=== PATIENT | female | born 2000 | race American Indian/Alaskan Native ===

== ENCOUNTER 2025-02-18 05:41 | Inpatient (IN) | payer OTHER, SELFPAY ==
[2025-02-18] VITALS (12 sets, daily range): BP systolic 104–141; BP diastolic 58–84; PULSE 96–130; RESP 12–27; TEMP 36.7–37.1; O2SAT 89–98; BMI 29.3; BMI 31.0
--- NOTE | 2025-02-18 | ECG_ITS ---
Test Reason : TACHY Blood Pressure : */* mmHG Vent. Rate : 119 BPM Atrial Rate : 119 BPM P-R Int : 136 ms QRS Dur : 86 ms QT Int : 314 ms P-R-T Axes : 66 78 20 degrees QTcB Int : 441 ms Sinus tachycardia Otherwise normal ECG No previous ECGs available Referred By: Generic ED Physician Electronically Signed By: Matthew Lujan
--- NOTE | ~2025-02-18 | CT_ITS ---
EXAMINATION: CT ABDOMEN AND PELVIS WITHOUT AND WITH CONTRAST CLINICAL INFORMATION: rectal bleeding, abd pain, elevated LFTs COMPARISON: None available. TECHNIQUE: Multidetector volumetric imaging was performed of the abdomen and pelvis before and after the IV administration of 85 cc of Omnipaque 350 intravenous contrast. Sagittal and coronal reformatted images were obtained on the technologist's workstation. This CT examination was performed using dose optimization techniques as appropriate, variously including the following: *Automated exposure control *Adjustment of mA and/or kV according to patient size (this includes techniques or standardized protocols for targeted exams where dose is matched to indication/reason for exam; i.e. extremities or head) *Use of iterative reconstruction technique FINDINGS: Respiratory motion degrades some of the images. LUNG BASES: No focal consolidation. No pleural effusion. LIVER: Hepatomegaly measuring 17.1 cm. Diffuse decreased attenuation of the liver parenchyma is compatible with hepatic steatosis. No focal lesions. GALLBLADDER AND BILIARY TREE: The gallbladder is unremarkable with no evidence of radiopaque gallstones, gallbladder wall thickening, or obvious pericholecystic inflammatory changes. No biliary ductal dilatation. PANCREAS: Unremarkable SPLEEN: Unremarkable ADRENAL GLANDS: Unremarkable KIDNEYS AND URETERS: No renal stones, solid appearing masses or hydronephrosis on either side. BLADDER: Unremarkable GASTROINTESTINAL TRACT: The small and large bowel are unremarkable. No evidence of intraluminal hyperdense content to suggest bleeding. The appendix is unremarkable. ABDOMINAL WALL: Small fat-containing umbilical hernia. PERITONEUM/RETROPERITONEUM: No free fluid or free air. LYMPH NODES: No gross lymphadenopathy. VASCULAR: Abdominal aorta is normal in caliber. PELVIC VISCERA: Unremarkable appearance of the uterus and bilateral ovaries. OSSEOUS STRUCTURES: No acute findings. CT/CT gi bleed abd pel wo/w IVcon IMPRESSION: 1. No acute findings. 2. No evidence of intraluminal bleeding within the bowel loops. 3. Hepatomegaly with findings of hepatic steatosis. Electronically signed by: Florin Altman MD 02/18/2025 09:34 AM EDT
[2025-02-18 06:32] LABS: MANUAL DIFF FLAG NO
[2025-02-18 06:37] LABS: Hematocrit 40.3 % (37.0-47.0); Hemoglobin 14.4 g/dl (12.0-16.0); Imm Gran Abs Auto 0.02 X10*3/uL (0.00-0.03); Imm Gran Pct Auto 0.3 % (0.0-0.4); Lymphocytes Absolute Auto 2.9 X10*3/uL (1.2-4.9); Mean Corpuscular HGB Conc 35.7 g/dl (31.0-35.0); Mean Corpuscular Hemoglobin 36.5 pg (27.0-33.0); Mean Corpuscular Volume 102.3 fL (80.0-98.0); NRBC Abs Auto 0.000 X10*3/uL (0.0-0.012); NRBC Pct Auto 0.0 /100WBC (0.0-0.2); Platelet Count 202 X10*3/uL (160-400); Red Blood Count 3.94 X10*6/uL (4.20-5.50); White Blood Count 6.9 X10*3/uL (4.8-10.8)
[2025-02-18 06:44] LABS: COVID-19 Test Negative (Negative); IDNOW Serial# 55D5AD1C; IDNOW Serial# 58CA691E; Influenza B2 Negative (Negative)
[2025-02-18 06:51] LABS: Alanine Aminotransferase 385 U/L (0-31); Albumin Level 4.7 g/dL (3.5-5.0); Alkaline Phosphatase 92 U/L (39-117); Anion Gap 17 (12-20); Aspartate Amino Transferase 553 U/L (5-31); Blood Urea Nitrogen 12 mg/dL (9-16); Calcium 9.4 mg/dL (8.4-10.2); Carbon Dioxide 22 mmol/L (22-29); Chloride 107 mmol/L (96-108); Creatinine Clr Calc Pharmacy 129.7; Estimated Glomerular Filt Rate > 60; Lipase 34 U/L (8-78); Magnesium 1.6 mg/dL (1.6-2.6); Potassium 3.5 mmol/L (3.3-5.1); Sodium 142 mmol/L (135-145); Total Protein 7.1 g/dL (6.5-8.0)
--- NOTE | 2025-02-18 07:02 | ED_ITS ---
HPI - Nausea/Vomiting/Diarrhea General Chief complaint: Nausea/Vomiting/Diarrhea Stated complaint: Stomach pain,n/v/d Time Seen by Provider: 02/18/25 07:01 Source: patient and RN notes reviewed Mode of arrival: ambulatory Limitations: no limitations History of Present Illness ED Provider: Clarisa Jean PA-C HPI Narrative: This is a 24-year-old female, with a past medical history of alcohol use disorder, who presents emergency department complaints of nausea, vomiting, and diarrhea for the last 8 weeks. Patient reports that she has had a burning sensation in her abdomen as well. She endorses that she does drink every day. She states that if she does not drink she goes into alcohol withdrawal, stating that she gets shaky, denies any history of seizure like activity. She states that she typically drinks a gal of vodka every 3 days. She has never sought out detox or help. She states that her last drink was just prior to assessment. She reports that the abdominal pain is less severe as the alcohol that she drinks does help with her abdominal pain. Denies any fevers or chills. No chest pain or shortness of breath. Denies any SI or HI. Patient does endorse bright red blood per rectum. No other complaints or concerns at this time. MD elicited complaint: nausea, vomiting, diarrhea and abdominal pain Pertinent past history: alcohol abuse Onset (ago): week(s) Description of vomiting: watery Description of diarrhea: blood Associated nausea: Yes Associated abdominal pain: Yes Location of pain: diffuse Pain consistency: intermittent Severity: moderate Quality: cramping and other (Burning) Exacerbating factors: none Relieving factors: none Associated symptoms: denies other symptoms Related Data Allergies Allergy/AdvReac Type Severity Reaction Status Date / Time amoxicillin Allergy Rash Verified 02/18/25 05:51 cefazolin Allergy Rash Verified 02/18/25 05:51 Penicillins Allergy Rash Verified 02/18/25 05:51 Review of Systems 2 Review of Systems: Yes all other systems are reviewed and are negative Constitutional: Constitutional: Reports as per HPI Gastrointestinal: Gastrointestinal: Reports nausea PMFSH Social History Social History Smoked in Last 30 Days: Yes Use of substances other than those prescribed or required for medical reasons: Yes Substance Use Type: Marijuana Advance Directives: No Advance Directives Information Provided: Yes Patient : No Physical Exam 2 Vital Signs: Vital Signs: Last Vital Signs Temp 98.2 F 02/18/25 05:50 Pulse 113 H 02/18/25 07:52 Resp 12 02/18/25 07:52 BP 123/75 02/18/25 07:52 Pulse Ox 95 02/18/25 07:52 O2 Del Method Room Air 02/18/25 07:52 BMI result Body Mass Index 29.3 Const: Other: Patient tearful, alcohol halitosis noted General: cooperative, comfortable and no acute distress O rientation/consciousness: patient oriented x3 Limitations: no limitations HEENT: Head: Yes normal to inspection, Yes normocephalic and Yes atraumatic Ears: hearing grossly normal bilaterally General nose exam: Normal external nose present Face and sinus: Yes normal facial exam Mouth: Normal oral and palatal mucosa present, oropharynx normal and moist mucous membranes Throat: Yes posterior oropharynx normal Eyes: General: appearance normal, both eyes and all related structures E yelids: Yes eyelids normal Conjunctivae: conjunctivae normal Sclerae: s clerae normal Pupils: Equal, round and reactive pupils present EOM: EOMs intact bilaterally Neck: Neck: Yes normal visual inspection, Yes full ROM and Yes no lymphadenopathy Lymphatic: no lymphadenopathy noted Chest: Chest palpation & inspection: normal inspection of the chest Resp: Effort & Inspection: normal respiratory effort and able to speak in complete sentences Auscultation: clear to auscultation bilaterally, no crackles, no rales, no rhonchi and no wheezes Cardio: Rate: regular rate Rhythm: regular rhythm Heart sounds: S1 normal heart sound present and S2 normal heart sound present GI: Inspection: Yes normal to inspection Skin: General skin exam: no rashes or lesions noted Trauma: no lacerations or abrasions Wounds: no wounds Neuro: General: patient oriented x3 and moves all extremities Cranial nerves: Yes Equal, round and reactive pupils present Extrem: General: Yes normal to inspection Right upper extremity: normal to inspection Left upper extremity: normal to inspection Right lower extremity: normal to inspection Left lower extremity: normal to inspection Medications Administered Discontinued Medications Generic Name Dose Route Start Last Admin Trade Name Freq PRN Reason Stop Dose Admin Diazepam 2.5 mg 02/18/25 07:21 02/18/25 07:48 Diazepam 10 Mg/2 Ml Cartridge IVPUSH 02/18/25 07:22 2.5 mg STAT ONE Administration Lactated Ringer's 1,000 mls @ 999 mls/hr 02/18/25 07:21 02/18/25 07:50 Lr IV 02/18/25 08:21 999 mls/hr .Q1H1M ONE Administration Iohexol 100 ml 02/18/25 08:41 02/18/25 08:41 Iohexol 350 Mg/Ml 100 Ml Infus..Btl IV 02/18/25 08:42 85 ml ONCE ONE Administration Phenobarbital Sodium 191 mg 02/18/25 08:00 02/18/25 08:12 Phenobarbital Sodium 130 Mg/Ml Im Once IM 02/18/25 08:01 191 mg ONCE ONE Administration Protocol Medical Decision Making Medical Decision Making MDM Narrative: This is a 24-year-old female who presents emergency department with concerns of nausea, vomiting, diarrhea and abdominal pain for the last 8 weeks. She does endorse bloody stool. She states that she does drink daily. She states that she typically drinks 1 gal of vodka every 3 days. Abdomen is soft, nontender. On my initial assessment, patient tearful, tachycardic. She last drank just prior to my assessment. Patient is shaky. Patient has not sought out detox or any help for her alcohol use disorder. Her family is unaware of these issues. Labs were obtained prior to my evaluation, she has no leukocytosis, H&H stable. Chemistry revealing significantly elevated liver transaminases nidus at AST ALT 553/385, normal bilirubin. This is consistent with alcohol induced hepatitis. She denies any other drug use other than marijuana. Negative for COVID and flu. EKG was obtained revealing sinus tachycardia. Given concern for alcohol withdrawal, will start on IV fluids, we will also medicate with Valium 2.5 mg IV push, and start on phenobarb protocol. We will also obtain CT abdomen and pelvis with and without contrast given bright red blood per rectum, and burning sensation, as well as history of alcohol use. 8:45 AM 02/18/2025 (Clarisa Jean PA-C): Patient returns back from CT scan, awaiting for report. Ethanol level 332. We will continue to closely monitor. Reassess, she is feeling better after receiving medications. Patient is still mildly tachycardic in the 1 teens however improved since her arrival. We will continue to closely monitor pending overall workup today. 9:42 AM 02/18/2025 (Clarisa Jean PA-C): Cat scan returns revealing no acute findings, no evidence of intraluminal bleeding within the bowel loops, hepatomegaly with findings of hepatic steatosis. Given acute hepatitis, and alcohol withdrawal, patient requiring hospital admission for further management. 9:55 AM 02/18/2025 (Clarisa Jean PA-C): Discussed case with hospitalist, transfer of care initiated. Patient agreeable for admission. Patient does endorse some nausea, ordered Zofran 4 mg IV. Differential Diagnosis Differential Diagnoses: The differential diagnosis associated with the presentation includes Alcohol withdrawal, alcohol use disorder, acute hepatitis, GI bleed Admission/Observation Consideration of admission/observation: Escalation of care including admission/observation considered Patient requiring admission secondary to alcohol use disorder, alcohol withdrawal, and acute hepatitis Lab Data [facility] Lab Attestation statement: I reviewed the patient's lab results. See MDM and course 02/18/25 06:26 02/18/25 06:26 Labs: Lab Results 02/18/25 02/18/25 02/18/25 Range/Units 06:22 06:26 08:15 WBC 6.9 (4.8-10.8) X10*3/uL RBC 3.94 L (4.20-5.50) X10*6/uL Hgb 14.4 (12.0-16.0) g/dl Hct 40.3 (37.0-47.0) % MCV 102.3 H (80.0-98.0) fL MCH 36.5 H (27.0-33.0) pg MCHC 35.7 H (31.0-35.0) g/dl RDW 12.8 (11.0-16.0) % Plt Count 202 (160-400) X10*3/uL MPV 9.8 (9.4-12.3) fL Immature Gran % (Auto) 0.3 (0.0-0.4) % Neut % (Auto) 42.7 L (45-73) % Lymph % (Auto) 41.8 H (20-40) % [place] % (Auto) 12.3 H (2-11) % Eos % (Auto) 2.2 (0-4) % Baso % (Auto) 0.7 (0-2) % Lymph # (Auto) 2.9 (1.2-4.9) X10*3/uL [place] # (Auto) 0.8 (0.1-1.2) X10*3/uL Eos # (Auto) 0.2 (0.0-0.4) X10*3/uL Baso # (Auto) 0.1 (0.0-0.2) X10*3/uL Abs Immat Gran (auto) 0.02 (0.00-0.03) X10*3/uL Absolute Neuts (auto) 2.9 (2.0-8.3) x10*3/uL Absolute Nucleated RBC 0.000 (0.0-0.012) X10*3/uL Nucleated RBC % (auto) 0.0 (0.0-0.2) /100WBC Sodium 142 (135-145) mmol/L Potassium 3.5 (3.3-5.1) mmol/L Chloride 107 (96-108) mmol/L Carbon Dioxide 22 (22-29) mmol/L Anion Gap 17 (12-20) BUN 12 (9-16) mg/dL Creatinine 0.60 (0.5-1.4) mg/dL Estim Creat Clear Calc 129.7 Estimated GFR > 60 Random Glucose 89 (60-115) mg/dL Calcium 9.4 (8.4-10.2) mg/dL Magnesium 1.6 (1.6-2.6) mg/dL Total Bilirubin 0.6 (0.0-1.0) mg/dL Direct Bilirubin 0.3 (0.0-0.5) mg/dL AST 553 H (5-31) U/L ALT 385 H (0-31) U/L Alkaline Phosphatase 92 (39-117) U/L Total Protein 7.1 (6.5-8.0) g/dL Albumin 4.7 (3.5-5.0) g/dL Lipase 34 (8-78) U/L Beta HCG, Quant < 2 mIU/mL Urine Color Yellow Urine Appearance Clear Urine pH 6.0 (5.0-9.0) Ur Specific [place] 1.010 (1.005-1.025) Urine Protein 30 (1+) H (Neg-Trace) mg/dL Urine Glucose (UA) Negative (Negative) mg/dL Urine Ketones Negative (Negative) mg/dL Urine Blood Negative (Negative) Urine Nitrite Negative (Negative) Ur Leukocyte Esterase Negative (Negative) Urine RBC 0-2 (0-2) /HPF Urine WBC 0-5 (0-5) /HPF Ur Squamous Epith Cells 0-2 (0-2) /HPF Urine Bacteria None Seen (None Seen) Hyaline Casts 0-2 (0-2) /LPF Urine Test NEGATIVE (NEGATIVE) Urine Opiates Screen Not Detected (Not Detect) Ur Buprenorphine Scrn Not Detected (Not Detect) ng/mL Ur Oxycodone Screen Not Detected (Not Detect) ng/mL Urine Methadone Screen Not Detected (Not Detect) ng/mL Urine Fentanyl Screen Not Detected (Not Detect) Ur Barbiturates Screen Not Detected (Not Detect) Ur Phencyclidine Scrn Not Detected (Not Detect) Ur Amphetamines Screen Not Detected (Not Detect) U Benzodiazepines Scrn Not Detected (Not Detect) Urine Cocaine Screen Not Detected (Not Detect) U Marijuana (THC) Screen POSITIVE H (Not Detect) Ethyl Alcohol 332 H* mg/dL COVID-19 (FLOYD) Negative (Negative) COVID-19 Clin Com See Note Influenza Type A (SHALONDA) Negative (Negative) Influenza Type B (SHALONDA) Negative (Negative) Influenza A & B Note See Note Independent Interpretation I performed an independent interpretation of an: EKG Interpretation: EKG sinus tachycardia at a ventricular rate of 119 beats per minute, GA interval 136, no STEMI Radiology Impression Discussion of test interpretation with radiology: I have reviewed the radiologist's reading. Radiologist Impression: FINDINGS: Respiratory motion degrades some of the images. LUNG BASES: No focal consolidation. No pleural effusion. LIVER: Hepatomegaly measuring 17.1 cm. Diffuse decreased attenuation of the liver parenchyma is compatible with hepatic steatosis. No focal lesions. GALLBLADDER AND BILIARY TREE: The gallbladder is unremarkable with no evidence of radiopaque gallstones, gallbladder wall thickening, or obvious pericholecystic inflammatory changes. No biliary ductal dilatation. PANCREAS: Unremarkable SPLEEN: Unremarkable ADRENAL GLANDS: Unremarkable KIDNEYS AND URETERS: No renal stones, solid appearing masses or hydronephrosis on either side. BLADDER: Unremarkable GASTROINTESTINAL TRACT: The small and large bowel are unremarkable. No evidence of intraluminal hyperdense content to suggest bleeding. The appendix is unremarkable. ABDOMINAL WALL: Small fat-containing umbilical hernia. PERITONEUM/RETROPERITONEUM: No free fluid or free air. LYMPH NODES: No gross lymphadenopathy. VASCULAR: Abdominal aorta is normal in caliber. PELVIC VISCERA: Unremarkable appearance of the uterus and bilateral ovaries. OSSEOUS STRUCTURES: No acute findings. CT/CT gi bleed abd pel wo/w IVcon IMPRESSION: 1. No acute findings. 2. No evidence of intraluminal bleeding within the bowel loops. 3. Hepatomegaly with findings of hepatic steatosis. Electronically signed by: Florin Altman MD 02/18/2025 09:34 AM EDT Dictated By: Florin Altman MD Critical Care Time Critical Care Time Critical Care Time: Yes Total Critical Care Time: 45 Attestation: I have personally provided critical care time exclusive of time spent on separately billable procedures. Time includes review of lab data, radiology results, discussion with consultants, and monitoring for potential decompensation. Intervention performed as documented. Discharge Plan Discharge Clinical Impression: Alcohol withdrawal, Hepatitis, acute Patient Disposition: Admitted As Inpatient Print Language: [place]
--- NOTE | 2025-02-18 07:38 | PC.NURSE ---
PT requesting detox, reports drinking 1 handle every 3 days. Sober friend at bedside who encouraged pt to come in. PT changed over, belongings placed in [place]. Alcohol in purse discarded by security.
[2025-02-18] MEDS: diazePAM 10 MG/2 ML CARTRIDGE 2.5 MG IVPUSH (07:48)
[2025-02-18] MEDS: Lactated Ringers 1,000 ML 999 ML IV (07:50)
--- NOTE | 2025-02-18 07:55 | PC.NURSE ---
Assumed care of patient. Pt is A+Ox4, anxious, cooperative. Pt here for alcohol detox, very anxious, was tachycardic. Smell of etoh noted on patient's breath, security previously checked patient per night nurse. Pt denies any pain at this time. Pt medicated and IV fluids started. Pt ambulated to bathroom prior to medications.
[2025-02-18] MEDS: PHENobarbitaL sodium 130 MG/ML IM ONCE 191 MG IM (08:12)
[2025-02-18 08:26] LABS: UPreg QC Valid YES
[2025-02-18 08:28] LABS: Appearance Urine Clear; Glucose Urine UA Negative (Negative); PH 6.0 (5.0-9.0); Specific Gravity - Urine 1.010 (1.005-1.025); UMIC TRIGGER UACC YES
[2025-02-18 08:34] LABS: Cannabinoid Screen Urine POSITIVE (Not Detect)
[2025-02-18] MEDS: iohexoL 350 MG/ML 100 ML INFUS..BTL IV (08:41)
--- NOTE | 2025-02-18 09:49 | P.HPHOSP_ITS ---
History of Present Illness Date of Service: 02/18/25 Attending physician on admission: Felicia Patricia Chief Complaint: Abd pain Pt is a 24-year-old female with a PMH significant for?alcohol use disorder who presents to the ED with?chronic left-sided abdominal pain and N/V/D in the setting of alcohol use disorder. Pt is requesting detox. Abd pain is sharp and stabbing in nature and primarily left-sided. Has been ongoing for months. Pt reports drinking be handle of rum every 2-3 days for many years. Attempted to detox on her own 2 years ago at home and apparently went into withdrawal. States has morning essential tremors which causes her to drink as soon as she wakes up. Has been drinking since she was 15 years old denies any hospitalizations for alcohol withdrawal. Has not sought detox in formal setting prior to this. Is tearful and would like help with her drinking. Reports increased anxiety and N/V. No auditory or visual hallucinations. No tactile disturbances. No SOB or difficulty breathing. Denies chest pain or pressure. Smokes marijuana, but denies illicit drug use. In the ED pt's vitals were significant for tachycardia of 130 and tachypnea 27. Labs were significant for MCV 102.3, AST 553 and ALT 385. T bili WNL. Lipase WNL. No leukocytosis. Stable H&H. No significant electrolyte abnormalities. Renal function WNL. Magnesium 1.6. CT?of abdomen/pelvis negative for acute findings though showed hepatomegaly. EKG demonstrated sinus tachycardia of 119 with QTC WNL and no evidence of significant ST elevations or depressions. Pt was treated in the ED with diazepam, IVF, and started on phenobarb protocal. Pt is admitted to the hospital for treatment and further evaluation of acute alcoholic hepatitis and request for alcohol detox. Review of Systems 2 Review of Systems: Negative except for that which is stated in the HPI. [facility] Social History Smoked in Last 30 Days: Yes Use of substances other than those prescribed or required for medical reasons: Yes Substance Use Type: Marijuana Advance Directives: No Advance Directives Information Provided: Yes Patient : No Meds Allergies Allergy/AdvReac Type Severity Reaction Status Date / Time amoxicillin Allergy Rash Verified 02/18/25 05:51 cefazolin Allergy Rash Verified 02/18/25 05:51 Penicillins Allergy Rash Verified 02/18/25 05:51 Active Medications: Current Medications Pharmacy Consult (Consult Rx Etoh Phenob Im/Po) 1 each MISCELLANE ONCE PRN; Protocol PRN Reason: Consult order Phenobarbital (Phenobarbital 30 Mg Tablet) 30 mg PO BID PHILIP; Protocol Stop: 02/20/25 09:01 Phenobarbital (Phenobarbital 15 Mg Tablet) 15 mg PO BID PHILIP; Protocol Stop: 02/22/25 09:01 Phenobarbital (Phenobarbital 15 Mg Tablet) 15 mg PO DAILY PHILIP; Protocol Stop: 02/24/25 09:01 Phenobarbital Sodium (Phenobarbital Sodium 130 Mg/Ml Vial Im Q3hx2) 143 mg IM Q3H PHILIP; Protocol Stop: 02/18/25 14:01 Home Medications ?Medication ?Instructions ?Recorded ?Confirmed ?Last Taken ?Type naproxen sodium 500 mg 500 mg PO DAILY PRN Migraine 02/18/25 02/18/25 Unknown History tablet,extended release 24 hr Headache mphase Physical Exam 2 Vital Signs and Narrative: Vital Signs: Last Vital Signs Temp 98.2 F 02/18/25 05:50 Pulse 113 H 02/18/25 07:52 Resp 12 02/18/25 07:52 BP 123/75 02/18/25 07:52 Pulse Ox 95 02/18/25 07:52 O2 Del Method Room Air 02/18/25 07:52 BMI result Body Mass Index 29.3 General: AOx3, tearful. In no acute distress Resp: CTA bilaterally CVS: S1, S2, RRR GI: Soft, no distention, LLQ and RLQ tenderness Skin: Warm, dry Neuro: Cranial nerves II-XII grossly intact bilaterally. Motor grossly intact bilaterally. Moderate upper extremity tremors bilaterally. No tongue fasciculations. Extremities: No edema Psych: Appropriate affect, tearful Results Labs 02/18/25 06:26 02/18/25 06:26 Labs: Laboratory Results - last 24 hr 02/18/25 02/18/25 02/18/25 06:22 06:26 08:15 MCV 102.3 H MCH 36.5 H MCHC 35.7 H RDW 12.8 Plt Count 202 MPV 9.8 Immature Gran % (Auto) 0.3 Neut % (Auto) 42.7 L Lymph % (Auto) 41.8 H [place] % (Auto) 12.3 H Eos % (Auto) 2.2 Baso % (Auto) 0.7 Lymph # (Auto) 2.9 [place] # (Auto) 0.8 Eos # (Auto) 0.2 Baso # (Auto) 0.1 Abs Immat Gran (auto) 0.02 Absolute Neuts (auto) 2.9 Absolute Nucleated RBC 0.000 Nucleated RBC % (auto) 0.0 Anion Gap 17 Estim Creat Clear Calc 129.7 Estimated GFR > 60 Random Glucose 89 Calcium 9.4 Magnesium 1.6 Total Bilirubin 0.6 Direct Bilirubin 0.3 AST 553 H ALT 385 H Alkaline Phosphatase 92 Total Protein 7.1 Albumin 4.7 Lipase 34 Beta HCG, Quant < 2 Urine Color Yellow Urine Appearance Clear Urine pH 6.0 Ur Specific [place] 1.010 Urine Protein 30 (1+) H Urine Glucose (UA) Negative Urine Ketones Negative Urine Blood Negative Urine Nitrite Negative Ur Leukocyte Esterase Negative Urine RBC 0-2 Urine WBC 0-5 Ur Squamous Epith Cells 0-2 Urine Bacteria None Seen Hyaline Casts 0-2 Urine Test NEGATIVE Urine Opiates Screen Not Detected Ur Buprenorphine Scrn Not Detected Ur Oxycodone Screen Not Detected Urine Methadone Screen Not Detected Urine Fentanyl Screen Not Detected Ur Barbiturates Screen Not Detected Ur Phencyclidine Scrn Not Detected Ur Amphetamines Screen Not Detected U Benzodiazepines Scrn Not Detected Urine Cocaine Screen Not Detected U Marijuana (THC) Screen POSITIVE H Ethyl Alcohol 332 H* COVID-19 (LFOYD) Negative COVID-19 Clin Com See Note Influenza Type A (SHALONDA) Negative Influenza Type B (SHALONDA) Negative Influenza A & B Note See Note Imaging Radiologist's Impressions: Impressions Abdomen/Pelvis CT 02/18/25 08:25 IMPRESSION: 1. No acute findings. 2. No evidence of intraluminal bleeding within the bowel loops. 3. Hepatomegaly with findings of hepatic steatosis. Electronically signed by: Florin Altman MD 02/18/2025 09:34 AM EDT Assessment and Plan (1) Hepatitis, acute: Status: Acute (2) Alcohol withdrawal: Status: Acute Plan Pt is a 24-year-old female with a PMH significant for?alcohol use disorder who presents to the ED with?chronic left-sided abdominal pain and N/V/D in the setting of alcohol use disorder. Pt is admitted to the hospital for treatment and further evaluation of acute alcoholic hepatitis and request for alcohol detox. Alcohol use disorder with impending alcohol withdrawal Pt drinking a handle of run ever 2-3 days, daily morning tremors, drinks upon waking, seeking detox Continue Phenobarb protocol Daily multivitamin, folic acid, thiamine, famotidine Follow lytes, Mag, BMP CIWA scale Addiction medicine consult Monitor on telemetry Acute hepatitis AST 553 and ALT 3 5 at time of presentation Likely secondary to AUD Hep A, B, C panel ordered Trend labs Full Code Attending:?Dr. Patricia DVT Prophylaxis: Lovenox Pt will require a hospitalization of at least two nights for treatment of acute alcoholic hepatitis and impending alcohol withdrawal. Pt will require hospital level care for controlled alcohol detox on phenobarb protocol.? Quality Stroke Does the patient have a stroke diagnosis?: No VTE Prior VTE?: No VTE Risk Level:: Medical - moderate - high VTE Device Contraindication: Treatment Not Indicated VTE Drug Contraindication: N/A - Med Ordered
[2025-02-18] MEDS: PHENobarbitaL sodium 130 MG/ML VIAL IM Q3Hx2 143 MG IM ×2 (10:00→13:53)
--- NOTE | 2025-02-18 10:36 | PC.NURSE ---
NG tube removed per Provider. Pt had requested to have it removed and provider stated ok to remvove.
[2025-02-18] MEDS: Nicotine 14 MG PATCH.TD24 TRANSDERMA (10:51)
--- NOTE | 2025-02-18 11:08 | PHA.MEDREC ---
Addendum entered by Jase Sheffield RP 02/18/25 11:27: Reviewed by [facility] Original Note: Pharmacy Consult ? Medication Reconciliation Pharmacy has completed the medication reconciliation. Spoke with pt and she confirmed she is only taking Naproxen 500mg tabs as needed for migraine headaches and she does not take any other medications at this time by mouth; pt has a Nexplanon control implant in her arm.
--- NOTE | 2025-02-18 11:30 | PC.NURSE ---
Pt sts she has alcohol in her belongings and does not want to get it back when she gets her belongings back.
--- NOTE | 2025-02-18 11:46 | PC.NURSE ---
Pt sts she is feeling better after the zofran, resting comfortably with eyes closed. RR even and unlabored, no visible s/s of distress.
[2025-02-18 12:05] LABS: HBS Num1 0.19 mIU/mL (0-7.99); HBc Num1 0.05 S/CO (0.00-0.79); HBsAGNum1 0.45 S/CO (0.00-0.99); Hepatitis A Antibody IgM 0.16 Index (0-0.79); Hepatitis B Surface Antigen Negative (Negative); ~HepC Num1 0.15 S/CO (0.00-0.79); ~Hepatitis A Antibody IgM Nonreactive (Nonreactive); ~Hepatitis B Surface Antibody NONREACTIVE (Nonreactive); ~Hepatitis C Antibody Nonreactive (Nonreactive)
[2025-02-18] MEDS: 0.9 % Sodium Chloride Flush 3 ML SYRINGE IVFLUSH ×2 (16:04→23:32)
--- NOTE | 2025-02-18 16:40 | PC.NURSE ---
Pt calm, cooperative, resting. Pt did eat about 1/2 of her tray, now has some nausea. Provider notified of nausea as zofran is q8h. Pt has her friend at bedside, seems much more relaxed compared to earlier.
[2025-02-19] VITALS (7 sets, daily range): BP systolic 111–135; BP diastolic 64–80; PULSE 70–98; RESP 16–19; TEMP 36–37.8; O2SAT 95–100
[2025-02-19 07:44] LABS: Alanine Aminotransferase 316 U/L (0-31); Albumin Level 4.1 g/dL (3.5-5.0); Alkaline Phosphatase 74 U/L (39-117); Anion Gap 14 (12-20); Aspartate Amino Transferase 374 U/L (5-31); Blood Urea Nitrogen 9 mg/dL (9-16); Calcium 9.0 mg/dL (8.4-10.2); Carbon Dioxide 24 mmol/L (22-29); Chloride 104 mmol/L (96-108); Creatinine Clr Calc Pharmacy 140.4; Estimated Glomerular Filt Rate > 60; Magnesium 1.6 mg/dL (1.6-2.6); Potassium 3.6 mmol/L (3.3-5.1); Sodium 138 mmol/L (135-145); Total Protein 6.2 g/dL (6.5-8.0)
--- NOTE | 2025-02-19 08:17 | MHC.CM.PN ---
CM met with Patient at bedside. Patient lives alone in a duplex and she required no services nor DME [employer]. Patient may benefit from a Recovery Team Consult r/t ETOH, to assist with disposition. CM has initiated and will follow for dc planning. Patient does not know the name of her PCP, just that the practice is on [facility] in [place]. Patient's Friend/Alejandro will transport at dc if Patient dc'd to home.
[2025-02-19] MEDS: Nicotine 14 MG PATCH.TD24 TRANSDERMA (08:59)
[2025-02-19] MEDS: 0.9 % Sodium Chloride Flush 3 ML SYRINGE IVFLUSH (09:03)
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
--- NOTE | 2025-02-19 18:31 | P.PNIM_ITS ---
Subjective Subjective Date of Service: 02/19/25 Interval History: Patient seen today by bedside. Seems to be in better spirits than yesterday. She wishes to discontinue use of alcohol definitively. No evidence of acute withdrawal during evaluation today. Says that she feels well overall. Review of Systems Review of Systems: Yes all other systems are reviewed and are negative Physical Exam 2 Exam: Exam: General: A&O x3, oriented to time place person and situation, comfortable, no pain Cardiac: S1, S2 auscultated with no S3/4, no MRG. Well perfused. Respiratory: Normal breath sounds auscultated throughout all lung zones, without wheezing, rales. Normal rate. GI/ : No abdominal pain on palpation, no masses or distentions. MSK: Normal ambulation without pain at bony prominences or musculature Neurological: Normal neurological examination on overview, without obvious CN II-XII abnormalities. Vital Signs: Vital Signs: Last Vital Signs Temp 97.0 F 02/19/25 16:00 Pulse 84 02/19/25 16:00 Resp 16 02/19/25 16:00 BP 124/72 02/19/25 16:00 Pulse Ox 97 02/19/25 16:00 O2 Del Method Room Air 02/19/25 16:00 O2 Flow Rate 1 02/18/25 12:19 BMI result Body Mass Index 31.0 Objective Data Active Medications Acetaminophen (Acetaminophen 325 Mg Tablet) 650 mg PO Q6H PRN PRN Reason: Pain, Mild 1-3,fever,headache Calcium Carbonate (Calcium Carbonate 750 Mg Tab.Chew) 750 mg PO Q4H PRN PRN Reason: Heartburn Enoxaparin Sodium (Enoxaparin Sodium 40 Mg/0.4 Ml Syringe) 40 mg SUBCUT Q24H [facility] Last Admin: 02/19/25 12:47 Dose: 40 mg Documented By: BESSIE Famotidine (Famotidine 20 Mg Tablet) 20 mg PO BID [facility] Last Admin: 02/19/25 08:59 Dose: 20 mg Documented By: BESSIE Folic Acid (Folic Acid 1 Mg Tablet) 1 mg PO DAILY [facility] Stop: 02/21/25 10:24 Last Admin: 02/19/25 08:59 Dose: 1 mg Documented By: BESSIE Gabapentin (Gabapentin 100 Mg Capsule) 100 mg PO TID PRN PRN Reason: anxiety/restlessness Last Admin: 02/19/25 10:40 Dose: 100 mg Documented By: BESSIE Magnesium Hydroxide (Milk Of Magnesia 30 Ml Oral.Susp) 30 ml PO DAILY PRN PRN Reason: Constipation Melatonin (Melatonin 3 Mg Tablet) 6 mg PO BEDTIME PRN PRN Reason: Insomnia Mirtazapine (Mirtazapine 7.5 Mg Tablet) 7.5 mg PO BEDTIME [facility] Multivitamins/Vitamin C (Multivitamin Tablet) 1 tab PO DAILY [facility] Stop: 02/21/25 10:24 Last Admin: 02/19/25 08:59 Dose: 1 tab Documented By: BESSIE Nicotine (Nicotine 14 Mg Patch.Td24) 14 mg TRANSDERMA DAILY [facility] Last Admin: 02/19/25 08:59 Dose: 14 mg Documented By: BESSIE Ondansetron HCl (Ondansetron Hcl 4 Mg/2 Ml Vial) 4 mg IVPUSH Q8H PRN PRN Reason: Nausea and Vomiting Last Admin: 02/18/25 22:09 Dose: 4 mg Documented By: BETO Pharmacy Consult (Consult Rx Etoh Phenob Im/Po) 1 each MISCELLANE ONCE PRN; Protocol PRN Reason: Consult order Phenobarbital (Phenobarbital 30 Mg Tablet) 30 mg PO BID [facility]; Protocol Stop: 02/20/25 09:01 Last Admin: 02/19/25 08:59 Dose: 30 mg Documented By: BESSIE Phenobarbital (Phenobarbital 15 Mg Tablet) 15 mg PO BID [facility]; Protocol Stop: 02/22/25 09:01 Phenobarbital (Phenobarbital 15 Mg Tablet) 15 mg PO DAILY [facility]; Protocol Stop: 02/24/25 09:01 Sodium Chloride (0.9 % Sodium Chloride Flush 3 Ml Syringe) [facility] Last Admin: 02/19/25 17:36 Dose: Not Given Documented By: BESSIE Non-Admin Reason: Previously Administered Thiamine HCl (Thiamine Hcl 100 Mg Tablet) 100 mg PO DAILY [facility] Stop: 02/21/25 10:24 Last Admin: 02/19/25 08:59 Dose: 100 mg Documented By: BESSIE Labs 02/18/25 06:26 02/19/25 06:51 Labs: Laboratory Results - last 24 hr 02/19/25 02/19/25 06:51 07:22 Hold Purple Top SEE NOTE Anion Gap 14 Estim Creat Clear Calc 140.4 Estimated GFR > 60 Random Glucose 68 Calcium 9.0 Magnesium 1.6 Total Bilirubin 1.6 H AST 374 H ALT 316 H Alkaline Phosphatase 74 Total Protein 6.2 L Albumin 4.1 Assessment and Plan (1) Alcohol use disorder, severe, dependence: Status: Acute (2) Alcohol withdrawal: Status: Acute (3) Hepatitis, acute: Status: Acute Plan 24-year-old female with a PMH significant for?alcohol use disorder who presents to the ED with?chronic left-sided abdominal pain and N/V/D in the setting of alcohol use disorder. Pt is admitted to the hospital for treatment and further evaluation of acute alcoholic hepatitis and request for alcohol detox. Alcohol use disorder with impending alcohol withdrawal Pt drinking a handle of run ever 2-3 days, daily morning tremors, drinks upon waking, seeking detox Continue Phenobarb protocol Daily multivitamin, folic acid, thiamine, famotidine Follow lytes, Mag, BMP CIWA scale Addiction medicine consult Monitor on telemetry Acute alcoholic hepatitis Likely secondary to AUD ALT/AST trending downward in 1:1 pattern Hep A, B, C panel ordered Trend labs [facility] - VTE: Enoxaparin 40 mg - CODE STATUS: Full code - DIET: Regular diet Total time managing care of this patient today: 35 minutes. Quality Stroke Does the patient have a stroke diagnosis?: No VTE Prior VTE?: No VTE Risk Level:: Medical - moderate - high VTE Device Contraindication: Treatment Not Indicated VTE Drug Contraindication: N/A - Med Ordered
--- NOTE | 2025-02-19 18:34 | PC.NURSE ---
Pt stated that her possessions (confiscated in ED) contained some alcohol. Pt requested that the alcohol be disposed of before she regains possession of her items. This tag writer contacted security and relayed this information/request; outcome unclear. Addiction medicine aware.
--- NOTE | 2025-02-19 22:17 | PC.NURSE ---
Pt here with alcohol withdrawal, told this RN she was feeling anxious, this RN notified MD Tobin Davis about this and her CIWA score of 5. MD Tobin Guzman ordered 0.5mg of ativan. Her vitals were 126/80, pulse 74, RR 16. Administered prn gabapentin and the ordered ativan. Pt refused bed alarm and insists the door to be closed. I instructed her to ring for assitance or if she needs anything. Has stated an increase in agitation. I will continue to monitor patient.
[2025-02-20] MEDS: 0.9 % Sodium Chloride Flush 3 ML SYRINGE IVFLUSH ×3 (00:05→17:57)
[2025-02-20 03:18] VITALS: BP 101/58; PULSE 63; RESP 17; TEMP 36.9; O2SAT 98
[2025-02-20 06:15] LABS: Alanine Aminotransferase 261 U/L (0-31); Albumin Level 4.1 g/dL (3.5-5.0); Alkaline Phosphatase 73 U/L (39-117); Anion Gap 12 (12-20); Aspartate Amino Transferase 287 U/L (5-31); Blood Urea Nitrogen 9 mg/dL (9-16); Calcium 9.4 mg/dL (8.4-10.2); Carbon Dioxide 28 mmol/L (22-29); Chloride 104 mmol/L (96-108); Creatinine Clr Calc Pharmacy 111.2; Estimated Glomerular Filt Rate > 60; Potassium 4.0 mmol/L (3.3-5.1); Sodium 140 mmol/L (135-145); Total Protein 6.2 g/dL (6.5-8.0)
[2025-02-20 07:53] VITALS: BP 112/72; PULSE 58; RESP 18; TEMP 36.1; O2SAT 99
[2025-02-20] MEDS: Nicotine 14 MG PATCH.TD24 TRANSDERMA (08:08)
--- NOTE | 2025-02-20 09:50 | P.PNADD_ITS ---
Subjective Subjective Date of Service: 02/20/25 Reason For Visit: acute alcoholic hepatitis, alcohol detox Interim History: Patient seen in follow up this morning Tearful, frustrated that she finds herself overwhelmed by things (ex. ticking of the clock) T/W removed clock from her room and provide pt with earphones. Gently reminded patient that mood lability is common in early withdrawal/recovery. In terms of physical withdrawal sx, patient reports those sx are much improved. Very mild tremor felt. No longer diaphoretic. Appetite good. Discussed plan in terms of aftercare. Agreeable to naltrexone and zoloft trial. relief worker had already discussed YASMINE with patient, so she is familiar with overview. Labs reviewed, LFTs continue to trend down Review of Systems Constitutional: Reports as per HPI and Reports chills Gastrointestinal: Denies abdominal pain, Denies loose stools and Denies nausea Psychiatric: Reports abnormal sleep pattern, Reports anxiety and Reports difficulty concentrating Mental Status Exam Mental Status Exam Level of Consciousness: Awake, Appropriate and Alert Patient Behavior: Appropriate and Anxious Mood Description: Labile Affect Description: Appropriate and Anxious Speech Pattern: Clear Hallucinations: None Delusions: Not Present Thought Process: Intact Thought Content: positive for Intact Judgement: Good Diagnostics Vital Signs (24Hr): Vital Signs - 24 hr 02/19/25 11:23 02/19/25 16:00 02/19/25 20:00 Temperature 99.3 F 97.0 F 98.7 F Pulse Rate 98 84 74 Respiratory Rate 18 16 16 Blood Pressure 127/73 124/72 126/80 Pulse Oximetry 98 97 100 Oxygen Delivery Method Room Air Room Air Room Air 02/19/25 23:04 02/20/25 03:18 02/20/25 07:53 Temperature 96.8 F 98.5 F 97.0 F Pulse Rate 70 63 58 Respiratory Rate 16 17 18 Blood Pressure 111/69 101/58 L 112/72 Pulse Oximetry 99 98 99 Oxygen Delivery Method Room Air Room Air Room Air BMI result Body Mass Index 31.0 Labs 02/18/25 06:26 02/20/25 05:12 Labs: Laboratory Results - last 48 hr 02/18/25 02/19/25 02/19/25 11:12 06:51 07:22 Hold Purple Top SEE NOTE Sodium 138 Potassium 3.6 Chloride 104 Carbon Dioxide 24 Anion Gap 14 BUN 9 Creatinine 0.57 Estim Creat Clear Calc 140.4 Estimated GFR > 60 Random Glucose 68 Calcium 9.0 Magnesium 1.6 Total Bilirubin 1.6 H AST 374 H ALT 316 H Alkaline Phosphatase 74 Total Protein 6.2 L Albumin 4.1 Hepatitis A IgM Ab Nonreactive Hep Bs Antigen Negative Hep Bs Antibody NONREACTIVE Hep B Core Total Ab Nonreactive Hepatitis C Ab (EIA) Nonreactive 02/20/25 05:12 Hold Purple Top SEE NOTE Sodium 140 Potassium 4.0 Chloride 104 Carbon Dioxide 28 Anion Gap 12 BUN 9 Creatinine 0.72 Estim Creat Clear Calc 111.2 Estimated GFR > 60 Random Glucose 88 Calcium 9.4 Magnesium Total Bilirubin 1.2 H AST 287 H ALT 261 H Alkaline Phosphatase 73 Total Protein 6.2 L Albumin 4.1 Hepatitis A IgM Ab Hep Bs Antigen Hep Bs Antibody Hep B Core Total Ab Hepatitis C Ab (EIA) Imaging Radiology Impressions: ITS Impressions Abdomen/Pelvis CT 02/18/25 08:25 IMPRESSION: 1. No acute findings. 2. No evidence of intraluminal bleeding within the bowel loops. 3. Hepatomegaly with findings of hepatic steatosis. Electronically signed by: Florin Altman MD 02/18/2025 09:34 AM EDT Medications Medications Current Medications Acetaminophen (Acetaminophen 325 Mg Tablet) 650 mg PO Q6H PRN PRN Reason: Pain, Mild 1-3,fever,headache Calcium Carbonate (Calcium Carbonate 750 Mg Tab.Chew) 750 mg PO Q4H PRN PRN Reason: Heartburn Enoxaparin Sodium (Enoxaparin Sodium 40 Mg/0.4 Ml Syringe) 40 mg SUBCUT Q24H [facility] Last Admin: 02/19/25 12:47 Dose: 40 mg Famotidine (Famotidine 20 Mg Tablet) 20 mg PO BID [facility] Last Admin: 02/20/25 08:09 Dose: 20 mg Folic Acid (Folic Acid 1 Mg Tablet) 1 mg PO DAILY [facility] Stop: 02/21/25 10:24 Last Admin: 02/20/25 08:08 Dose: 1 mg Gabapentin (Gabapentin 100 Mg Capsule) 100 mg PO TID PRN PRN Reason: anxiety/restlessness Last Admin: 02/19/25 21:23 Dose: 100 mg Lorazepam (Lorazepam 0.5 Mg Tablet) 0.5 mg PO Q6H PRN PRN Reason: Anxiety Last Admin: 02/19/25 21:25 Dose: 0.5 mg Magnesium Hydroxide (Milk Of Magnesia 30 Ml Oral.Susp) 30 ml PO DAILY PRN PRN Reason: Constipation Melatonin (Melatonin 3 Mg Tablet) 6 mg PO BEDTIME PRN PRN Reason: Insomnia Mirtazapine (Mirtazapine 7.5 Mg Tablet) 7.5 mg PO BEDTIME [facility] Last Admin: 02/19/25 20:16 Dose: 7.5 mg Multivitamins/Vitamin C (Multivitamin Tablet) 1 tab PO DAILY [facility] Stop: 02/21/25 10:24 Last Admin: 02/20/25 08:09 Dose: 1 tab Nicotine (Nicotine 14 Mg Patch.Td24) 14 mg TRANSDERMA DAILY [facility] Last Admin: 02/20/25 08:08 Dose: 14 mg Ondansetron HCl (Ondansetron Hcl 4 Mg/2 Ml Vial) 4 mg IVPUSH Q8H PRN PRN Reason: Nausea and Vomiting Last Admin: 02/18/25 22:09 Dose: 4 mg Pharmacy Consult (Consult Rx Etoh Phenob Im/Po) 1 each MISCELLANE ONCE PRN; Protocol PRN Reason: Consult order Phenobarbital (Phenobarbital 15 Mg Tablet) 15 mg PO BID [facility]; Protocol Stop: 02/22/25 09:01 Phenobarbital (Phenobarbital 15 Mg Tablet) 15 mg PO DAILY [facility]; Protocol Stop: 02/24/25 09:01 Sodium Chloride (0.9 % Sodium Chloride Flush 3 Ml Syringe) 3 ml IVFLUSH QSHIFT [facility] Last Admin: 02/20/25 08:09 Dose: 3 ml Thiamine HCl (Thiamine Hcl 100 Mg Tablet) 100 mg PO DAILY [facility] Stop: 02/21/25 10:24 Last Admin: 02/20/25 08:09 Dose: 100 mg Allergies Allergies Allergy/AdvReac Type Severity Reaction Status Date / Time amoxicillin Allergy Rash Verified 02/18/25 05:51 cefazolin Allergy Rash Verified 02/18/25 05:51 Penicillins Allergy Rash Verified 02/18/25 05:51 Assessment & Plan Assessment & Plan (1) Alcohol use disorder, severe, dependence: Status: Acute Code(s): F10.20 - Alcohol dependence, uncomplicated Assessment and Plan: * withdrawal improving--completing phenobarbital taper * will trail zoloft 25mg QD --plan to increase after one week to 50mg QD * naltrexone 25mg QD for 3 days then increase to 50mg QD * relief worker scheduled intake appt with [facility] Total time managing care of this patient today __30_ minutes.
[2025-02-20 12:00] VITALS: BP 119/74; PULSE 87; RESP 18; O2SAT 99
--- NOTE | 2025-02-20 12:33 | HO.PM.IMPN ---
Subjective Subjective Date of Service: 02/20/25 Interval History: Cris Carcamo presents with symptoms related to acute alcoholic hepatitis and acute alcoholic trauma. She reports experiencing hot and cold flashes, body aches, and shaking, which has nearly completely resolved. The patient also complains of recurring stomach pain. Cris states that she had difficulty falling asleep initially but slept well after receiving medication. She continues to experience fluctuating body temperature, describing it as hot, cold, hot, cold. The patient notes that her shaking has significantly improved, being nearly completely gone, though some tremors persist. She experiences goosebumps when feeling cold, which subside during episodes of sweating. The patient reports that her stomach pain, which had previously resolved, has started to return. She mentions difficulty eating certain foods, stating that the burger was really hard for me, but she was able to consume ham, cheese, chicken noodle soup, salad, and fruit. Cris also describes respiratory symptoms, including occasional wheezing and production of clear, sometimes blackish or grayish phlegm. Regarding substance use, Cris reports smoking marijuana for like a year or two. She denies seeing or hearing things that aren't there. The patient has used an inhaler in the past when sick but has not been diagnosed with asthma or COPD. Review of Systems Review of Systems General: Positive for hot and cold flashes, sweating. Skin: Positive for goosebumps when cold. Gastrointestinal: Positive for abdominal pain. Respiratory: Positive for wheezing, phlegm production (clear, sometimes blackish or grayish). Neurological: Positive for shaking (nearly completely gone). Psychiatric: Positive for anxiety. Review of Systems: Yes all other systems are reviewed and are negative Physical Exam Exam: Exam: General: A&O x3, oriented to time place person and situation, comfortable, no pain Cardiac: S1, S2 auscultated with no S3/4, no MRG. Well perfused. Respiratory: Normal breath sounds auscultated throughout all lung zones, without wheezing, rales. Normal rate. GI/ : No abdominal pain on palpation, no masses or distentions. MSK: Normal ambulation without pain at bony prominences or musculature Neurological: Normal neurological examination on overview, without obvious CN II-XII abnormalities. No tremors observed during [id number] test. Eye exam normal. Tongue protrusion normal. [employer] Tender strength slightly weaker than expected. Cranial nerves intact. Vital Signs: Vital Signs: Last Vital Signs Temp 97.0 F 02/20/25 07:53 Pulse 87 02/20/25 12:00 Resp 18 02/20/25 12:00 BP 119/74 02/20/25 12:00 Pulse Ox 99 02/20/25 12:00 O2 Del Method Room Air 02/20/25 12:00 O2 Flow Rate 1 02/18/25 12:19 BMI result Body Mass Index 31.0 Objective Data Active Medications Acetaminophen (Acetaminophen 325 Mg Tablet) 650 mg PO Q6H PRN PRN Reason: Pain, Mild 1-3,fever,headache Calcium Carbonate (Calcium Carbonate 750 Mg Tab.Chew) 750 mg PO Q4H PRN PRN Reason: Heartburn Enoxaparin Sodium (Enoxaparin Sodium 40 Mg/0.4 Ml Syringe) 40 mg SUBCUT Q24H [facility] Last Admin: 02/20/25 10:51 Dose: 40 mg Documented By: CAROLE Famotidine (Famotidine 20 Mg Tablet) 20 mg PO BID [facility] Last Admin: 02/20/25 08:09 Dose: 20 mg Documented By: CAROLE Folic Acid (Folic Acid 1 Mg Tablet) 1 mg PO DAILY [facility] Stop: 02/21/25 10:24 Last Admin: 02/20/25 08:08 Dose: 1 mg Documented By: CAROLE Gabapentin (Gabapentin 100 Mg Capsule) 100 mg PO TID PRN PRN Reason: anxiety/restlessness Last Admin: 02/19/25 21:23 Dose: 100 mg Documented By: GEMINI Lorazepam (Lorazepam 0.5 Mg Tablet) 0.5 mg PO Q6H PRN PRN Reason: Anxiety Last Admin: 02/19/25 21:25 Dose: 0.5 mg Documented By: GEMINI Magnesium Hydroxide (Milk Of Magnesia 30 Ml Oral.Susp) 30 ml PO DAILY PRN PRN Reason: Constipation Melatonin (Melatonin 3 Mg Tablet) 6 mg PO BEDTIME PRN PRN Reason: Insomnia Mirtazapine (Mirtazapine 7.5 Mg Tablet) 7.5 mg PO BEDTIME [facility] Last Admin: 02/19/25 20:16 Dose: 7.5 mg Documented By: ALANA Multivitamins/Vitamin C (Multivitamin Tablet) 1 tab PO DAILY [facility] Stop: 02/21/25 10:24 Last Admin: 02/20/25 08:09 Dose: 1 tab Documented By: CAROLE Nicotine (Nicotine 14 Mg Patch.Td24) 14 mg TRANSDERMA DAILY [facility] Last Admin: 02/20/25 08:08 Dose: 14 mg Documented By: CRAOLE Ondansetron HCl (Ondansetron Hcl 4 Mg/2 Ml Vial) 4 mg IVPUSH Q8H PRN PRN Reason: Nausea and Vomiting Last Admin: 02/18/25 22:09 Dose: 4 mg Documented By: BETO Pharmacy Consult (Consult Rx Etoh Phenob Im/Po) 1 each MISCELLANE ONCE PRN; Protocol PRN Reason: Consult order Phenobarbital (Phenobarbital 15 Mg Tablet) 15 mg PO BID [facility]; Protocol Stop: 02/22/25 09:01 Phenobarbital (Phenobarbital 15 Mg Tablet) 15 mg PO DAILY [facility]; Protocol Stop: 02/24/25 09:01 Sertraline HCl (Sertraline Hcl 25 Mg Tablet) 25 mg PO DAILY [facility] Last Admin: 02/20/25 10:51 Dose: 25 mg Documented By: CAROLE Sodium Chloride (0.9 % Sodium Chloride Flush 3 Ml Syringe) 3 ml IVFLUSH QSHIFT [facility] Last Admin: 02/20/25 08:09 Dose: 3 ml Documented By: CAROLE Thiamine HCl (Thiamine Hcl 100 Mg Tablet) 100 mg PO DAILY [facility] Stop: 02/21/25 10:24 Last Admin: 02/20/25 08:09 Dose: 100 mg Documented By: CAROLE Labs 02/18/25 06:26 02/20/25 05:12 Labs: Laboratory Results - last 24 hr 02/20/25 05:12 Hold Purple Top SEE NOTE Anion Gap 12 Estim Creat Clear Calc 111.2 Estimated GFR > 60 Random Glucose 88 Calcium 9.4 Total Bilirubin 1.2 H AST 287 H ALT 261 H Alkaline Phosphatase 73 Total Protein 6.2 L Albumin 4.1 Assessment and Plan (1) Alcohol withdrawal: Status: Acute (2) Alcohol use disorder, severe, dependence: Status: Acute (3) Hepatitis, acute: Status: Acute (4) Gastritis: Status: Acute (5) Mild intermittent asthma: Status: Acute Plan 24-year-old female with a PMH significant for?alcohol use disorder who presents to the ED with?chronic left-sided abdominal pain and N/V/D in the setting of alcohol use disorder. Pt is admitted to the hospital for treatment and further evaluation of acute alcoholic hepatitis and request for alcohol detox. Alcohol use disorder with impending alcohol withdrawal Pt drinking a handle of run ever 2-3 days, daily morning tremors, drinks upon waking, seeking detox. ?Patient is experiencing symptoms consistent with alcohol withdrawal, including temperature dysregulation (hot/cold flashes) and anxiety. She reports that shaking has nearly completely resolved following administration of phenobarbital. No hallucinations or delirium are present. The patient's symptoms appear to be improving with current management. Plan - Continue Phenobarb protocol - Daily multivitamin, folic acid, thiamine, famotidine - Follow lytes, Mag, BMP - CIWA scale - Addiction medicine consult Acute alcoholic hepatitis Likely secondary to AUD ALT/AST trending downward in 1:1 pattern Hep A, B, C panel ordered Trend labs Gastritis/Gastroesophageal Reflux Disease (GERD) Assessment: Patient reports recurrence of abdominal pain after initial improvement. She has been able to tolerate some foods (ham, cheese, chicken noodle soup) but had difficulty with a burger. These symptoms are consistent with gastritis or GERD, which are common in the setting of alcohol use and withdrawal. Plan: - Initiate or continue proton pump inhibitor (PPI) therapy - Recommend low-acid diet and avoidance of irritating foods - Monitor symptoms and adjust treatment as needed Possible Asthma/Respiratory Issues Assessment: On lung examination, diffuse rhonchi were noted. Patient reports occasional wheezing and production of clear to hawthorne/black sputum. She has a history of using inhalers when ill but no formal diagnosis of asthma or COPD. Given her history of marijuana use, these symptoms could be related to smoking-induced bronchitis or undiagnosed asthma. Plan: - Administer a dose of bronchodilator (inhaler) - Monitor for improvement in respiratory symptoms - Consider further pulmonary function testing if symptoms persist [facility] - VTE: Enoxaparin 40 mg - CODE STATUS: Full code - DIET: Regular diet Total time managing care of this patient today: 35 minutes. Quality Stroke Does the patient have a stroke diagnosis?: No VTE Prior VTE?: No VTE Risk Level:: Medical - moderate - high VTE Device Contraindication: Treatment Not Indicated VTE Drug Contraindication: N/A - Med Ordered
--- NOTE | 2025-02-20 13:08 | MHC.RECOVRN ---
Intake appointment with the [facility] made for 02/25/2025 @ 3pm. Pt made aware and appointment entered in d/c planning.
[2025-02-20 15:45] VITALS: BP 107/70; PULSE 76; RESP 18; TEMP 36.4; O2SAT 98
[2025-02-20 20:00] VITALS: BP 107/72; PULSE 81; RESP 18; TEMP 36.3; O2SAT 100
[2025-02-20 23:24] VITALS: BP 113/64; PULSE 69; RESP 16; TEMP 36.1; O2SAT 98
[2025-02-21 03:09] VITALS: BP 109/72; PULSE 63; RESP 16; TEMP 36.1; O2SAT 99
[2025-02-21 07:35] VITALS: BP 112/56; PULSE 60; RESP 16; TEMP 36.2; O2SAT 98
[2025-02-21 07:43] VITALS: BP 112/56; PULSE 60; RESP 14; TEMP 36.2; O2SAT 98
[2025-02-21] MEDS: Nicotine 14 MG PATCH.TD24 TRANSDERMA (09:03)
[2025-02-21] MEDS: 0.9 % Sodium Chloride Flush 3 ML SYRINGE IVFLUSH ×3 (09:08→23:34)
--- NOTE | 2025-02-21 10:46 | MHC.RECOVRN ---
Addendum entered by Swapna Siddiqui RN 02/21/25 10:52: Pt not reporting or displaying any sx of W/D. AM CIWA 0. Original Note: Met with pt.in 364-1 to follow up and offer support Pt sitting at table and reports she is feeling much better. We discussed Naltrexone, its use and effects. I provided education on harm reduction, safe use, neurobiology of addiction, PAWS. Pt's goal right now is complete abstinence. Pt was also provided with education on safety plans for triggers. Pt stated she will be leaving tomorrow. T/W will check in with pt. tomorrow and collaborate with provider on D/C meds as she will need script for naltrexone, Zoloft and Remeron No further needs identified by pt. ACS available PRN
--- NOTE | 2025-02-21 10:53 | MHC.RECOVRN ---
Pt not reporting or displaying any sx of W/D. AM CIWA 0 Met with pt.in 364-1 to follow up and offer support Pt sitting at table and reports she is feeling much better. Pt not reporting or displaying any sx of W/D. AM CIWA 0 We discussed Naltrexone, its use and effects. I provided education on harm reduction, safe use, neurobiology of addiction, PAWS. Pt's goal right now is complete abstinence. Pt was also provided with education on safety plans for triggers. Pt stated she will be leaving tomorrow. Pt has appt. with [facility] 9.10 @ 3PM and knows to call if needs to change. T/W will check in with pt. tomorrow and collaborate with provider on D/C meds as she will need script for naltrexone, Zoloft and Remeron No further needs identified by pt. ACS available PRN
[2025-02-21 11:57] VITALS: BP 126/82; PULSE 84; RESP 16; TEMP 36.3; O2SAT 98
--- NOTE | 2025-02-21 13:15 | HO.PM.IMPN ---
Subjective Subjective Date of Service: 02/21/25 Interval History: Patient feels much better today. Reports resolution of her tremulousness, and sweating. She is able to sleep through the night. She denies any palpitations or anxiety. Denies visual or auditory hallucinations. Denies abdominal pain has been eating and drinking well Stooling and urinating well. She is eager to be discharged Review of Systems Review of Systems: Yes all other systems are reviewed and are negative Physical Exam Exam: Exam: General: A&O x3, oriented to time place person and situation, comfortable, no pain Cardiac: S1, S2 auscultated with no S3/4, no MRG. Well perfused. Respiratory: Normal breath sounds auscultated throughout all lung zones, without wheezing, rales. Normal rate. GI/ : No abdominal pain on palpation, no masses or distentions. MSK: Normal ambulation without pain at bony prominences or musculature Neurological: Normal neurological examination on overview, without obvious CN II-XII abnormalities. No tremors observed during [id number] test. Eye exam normal. Tongue protrusion normal. Yarn Dumper strength slightly weaker than expected. Cranial nerves intact. Vital Signs: Vital Signs: Last Vital Signs Temp 97.4 F 02/21/25 11:57 Pulse 84 02/21/25 11:57 Resp 16 02/21/25 11:57 BP 126/82 02/21/25 11:57 Pulse Ox 98 02/21/25 11:57 O2 Del Method Room Air 02/21/25 11:57 O2 Flow Rate 1 02/18/25 12:19 BMI result Body Mass Index 31.0 Objective Data Active Medications Acetaminophen (Acetaminophen 325 Mg Tablet) 650 mg PO Q6H PRN PRN Reason: Pain, Mild 1-3,fever,headache Albuterol Sulfate (Albuterol Sulfate 90 Mcg 8 Gm Inhaler) 1 puff INHALE RQ4H PRN PRN Reason: Wheezing Calcium Carbonate (Calcium Carbonate 750 Mg Tab.Chew) 750 mg PO Q4H PRN PRN Reason: Heartburn Enoxaparin Sodium (Enoxaparin Sodium 40 Mg/0.4 Ml Syringe) 40 mg SUBCUT Q24H [facility] Last Admin: 02/21/25 11:31 Dose: 40 mg Documented By: MARTHA Famotidine (Famotidine 20 Mg Tablet) 40 mg PO BID [facility] Last Admin: 02/21/25 09:03 Dose: 40 mg Documented By: MARTHA Gabapentin (Gabapentin 100 Mg Capsule) 100 mg PO TID PRN PRN Reason: anxiety/restlessness Last Admin: 02/19/25 21:23 Dose: 100 mg Documented By: GEMINI Lorazepam (Lorazepam 0.5 Mg Tablet) 0.5 mg PO Q6H PRN PRN Reason: Anxiety Last Admin: 02/19/25 21:25 Dose: 0.5 mg Documented By: GEMNII Magnesium Hydroxide (Milk Of Magnesia 30 Ml Oral.Susp) 30 ml PO DAILY PRN PRN Reason: Constipation Melatonin (Melatonin 3 Mg Tablet) 6 mg PO BEDTIME PRN PRN Reason: Insomnia Mirtazapine (Mirtazapine 7.5 Mg Tablet) 7.5 mg PO BEDTIME [facility] Last Admin: 02/20/25 20:03 Dose: 7.5 mg Documented By: LYNDSEY Naltrexone HCl (Naltrexone Hcl 50 Mg Tablet) 25 mg PO DAILY [facility] Last Admin: 02/21/25 09:03 Dose: 25 mg Documented By: MARTHA Nicotine (Nicotine 14 Mg Patch.Td24) 14 mg TRANSDERMA DAILY [facility] Last Admin: 02/21/25 09:03 Dose: 14 mg Documented By: MARTHA Ondansetron HCl (Ondansetron Hcl 4 Mg/2 Ml Vial) 4 mg IVPUSH Q8H PRN PRN Reason: Nausea and Vomiting Last Admin: 02/18/25 22:09 Dose: 4 mg Documented By: BETO Pharmacy Consult (Consult Rx Etoh Phenob Im/Po) 1 each MISCELLANE ONCE PRN; Protocol PRN Reason: Consult order Phenobarbital (Phenobarbital 15 Mg Tablet) 15 mg PO BID [facility]; Protocol Stop: 02/22/25 09:01 Last Admin: 02/21/25 09:03 Dose: 15 mg Documented By: MARTHA Phenobarbital (Phenobarbital 15 Mg Tablet) 15 mg PO DAILY [facility]; Protocol Stop: 02/24/25 09:01 Sertraline HCl (Sertraline Hcl 25 Mg Tablet) 25 mg PO DAILY [facility] Last Admin: 02/21/25 09:03 Dose: 25 mg Documented By: MARTHA Sodium Chloride (0.9 % Sodium Chloride Flush 3 Ml Syringe) 3 ml IVFLUSH QSHIFT [facility] Last Admin: 02/21/25 09:08 Dose: 3 ml Documented By: MARTHA Labs 02/18/25 06:26 02/20/25 05:12 Assessment and Plan (1) Alcohol withdrawal: Status: Acute (2) Alcohol use disorder, severe, dependence: Status: Acute (3) Gastritis: Status: Acute (4) Hepatitis, acute: Status: Acute (5) Mild intermittent asthma: Status: Acute Plan 24-year-old female with a PMH significant for?alcohol use disorder who presents to the ED with?chronic left-sided abdominal pain and N/V/D in the setting of alcohol use disorder. Pt is admitted to the hospital for treatment and further evaluation of acute alcoholic hepatitis and request for alcohol detox. Alcohol use disorder with impending alcohol withdrawal Pt drinking a handle of run ever 2-3 days, daily morning tremors, drinks upon waking, seeking detox. ?Patient is experiencing symptoms consistent with alcohol withdrawal, including temperature dysregulation (hot/cold flashes) and anxiety. She reports that shaking has nearly completely resolved following administration of phenobarbital. No hallucinations or delirium are present. The patient's symptoms appear to be improving with current management. Plan - Continue Phenobarb protocol - Daily multivitamin, folic acid, thiamine, famotidine - Follow lytes, Mag, BMP - CIWA scale - Addiction medicine consult Acute alcoholic hepatitis Likely secondary to AUD ALT/AST trending downward in 1:1 pattern Hep A, B, C panel ordered Trend labs Gastritis/Gastroesophageal Reflux Disease (GERD) Assessment: Patient reports recurrence of abdominal pain after initial improvement. She has been able to tolerate some foods (ham, cheese, chicken noodle soup) but had difficulty with a burger. These symptoms are consistent with gastritis or GERD, which are common in the setting of alcohol use and withdrawal. Plan: - Initiate or continue proton pump inhibitor (PPI) therapy - Recommend low-acid diet and avoidance of irritating foods - Monitor symptoms and adjust treatment as needed Possible Asthma/Respiratory Issues Assessment: On lung examination, diffuse rhonchi were noted. Patient reports occasional wheezing and production of clear to hawthorne/black sputum. She has a history of using inhalers when ill but no formal diagnosis of asthma or COPD. Given her history of marijuana use, these symptoms could be related to smoking-induced bronchitis or undiagnosed asthma. Plan: - Administer a dose of bronchodilator (inhaler) - Monitor for improvement in respiratory symptoms - Consider further pulmonary function testing if symptoms persist [facility] [employer] - VTE: Enoxaparin 40 mg - CODE STATUS: Full code - DIET: Regular diet Total time managing care of this patient today: 35 minutes. Quality Stroke Does the patient have a stroke diagnosis?: No VTE Prior VTE?: No VTE Risk Level:: Medical - moderate - high VTE Device Contraindication: Treatment Not Indicated VTE Drug Contraindication: N/A - Med Ordered
[2025-02-21 15:07] VITALS: BP 117/67; PULSE 58; RESP 18; TEMP 36.2; O2SAT 99
[2025-02-21 19:31] VITALS: BP 123/67; PULSE 96; RESP 18; TEMP 36.2; O2SAT 97
[2025-02-22] VITALS: BP 115/75; PULSE 73; RESP 19; TEMP 36.1; O2SAT 99
[2025-02-22 04:00] VITALS: BP 102/62; PULSE 59; RESP 18; TEMP 36.6; O2SAT 99
[2025-02-22 07:47] VITALS: BP 118/67; PULSE 72; RESP 16; TEMP 36; O2SAT 98
[2025-02-22] MEDS: 0.9 % Sodium Chloride Flush 3 ML SYRINGE IVFLUSH (08:29)
[2025-02-22 10:30] LABS: Alanine Aminotransferase 489 U/L (0-31); Albumin Level 4.8 g/dL (3.5-5.0); Alkaline Phosphatase 92 U/L (39-117); Anion Gap 15 (12-20); Aspartate Amino Transferase 515 U/L (5-31); Blood Urea Nitrogen 6 mg/dL (9-16); Calcium 10.0 mg/dL (8.4-10.2); Carbon Dioxide 27 mmol/L (22-29); Chloride 103 mmol/L (96-108); Creatinine Clr Calc Pharmacy 117.7; Estimated Glomerular Filt Rate > 60; Magnesium 1.9 mg/dL (1.6-2.6); Potassium 4.9 mmol/L (3.3-5.1); Sodium 140 mmol/L (135-145); Total Protein 7.2 g/dL (6.5-8.0)
[2025-02-22 10:45] LABS: Ferritin 439 ng/mL (10-122)
--- NOTE | 2025-02-22 11:53 | PM.DS ---
DS: Providers Provider Date of Service: 02/22/25 Date of admission: 02/18/25 09:56 Date of discharge: 02/22/25 Primary care physician: Unknown Physician Consults: 02/18/25 10:32 Addiction Medicine Provider Routine Consulting Provider: Addiction Covering Reason for consultation: AUD, wants detox Attending physician on discharge: Felicia Patricia DS: Diagnosis Discharge Diagnosis (1) Alcohol withdrawal: Status: Acute (2) Alcohol use disorder, severe, dependence: Status: Acute (3) Gastritis: Status: Acute (4) Hepatitis, acute: Status: Acute (5) Mild intermittent asthma: Status: Acute DS: Summary Hospital Course Hospital Course: 24-year-old female with a PMH significant for?alcohol use disorder who presents to the ED with?chronic left-sided abdominal pain and N/V/D in the setting of alcohol use disorder. Pt is admitted to the hospital for treatment and further evaluation of acute alcoholic hepatitis and request for alcohol detox. Abd pain is sharp and stabbing in nature and primarily left-sided. Has been ongoing for months. Pt reports drinking be handle of rum every 2-3 days for many years. Attempted to detox on her own 2 years ago at home and apparently went into withdrawal. States has morning essential tremors which causes her to drink as soon as she wakes up. Has been drinking since she was 15 years old denies any hospitalizations for alcohol withdrawal. Has not sought detox in formal setting prior to this. Is tearful and would like help with her drinking. Reports increased anxiety and N/V. No auditory or visual hallucinations. No tactile disturbances. No SOB or difficulty breathing. Denies chest pain or pressure. Smokes marijuana, but denies illicit drug use. In the ED pt's vitals were significant for tachycardia of 130 and tachypnea 27. Labs were significant for MCV 102.3, AST 553 and ALT 385. T bili WNL. Lipase WNL. No leukocytosis. Stable H&H. No significant electrolyte abnormalities. Renal function WNL. Magnesium 1.6. CT?of abdomen/pelvis negative for acute findings though showed hepatomegaly. EKG demonstrated sinus tachycardia of 119 with QTC WNL and no evidence of significant ST elevations or depressions. Pt was treated in the ED with diazepam, IVF, and started on phenobarb protocal. Pt is admitted to the hospital for treatment and further evaluation of acute alcoholic hepatitis and request for alcohol detox. Alcohol use disorder with impending alcohol withdrawal Pt drinking a handle of run ever 2-3 days, daily morning tremors, drinks upon waking, seeking detox. ?Patient is experiencing symptoms consistent with alcohol withdrawal, including temperature dysregulation (hot/cold flashes) and anxiety. She reports that shaking has nearly completely resolved following administration of phenobarbital. No hallucinations or delirium are present. The patient's symptoms have resolved. PLAN - Daily multivitamin, folic acid, thiamine, famotidine - Addiction medicine following outpatient - Naltrexone 50mg OD PO Acute alcoholic hepatitis Likely secondary to AUD ALT/AST trending downward in 1:1 pattern Hep A, B, C panel ordered - negative Normalised LFTs by time of discharge Gastritis/Gastroesophageal Reflux Disease (GERD) Assessment: Patient reports recurrence of abdominal pain after initial improvement. She has been able to tolerate some foods (ham, cheese, chicken noodle soup) but had difficulty with a burger. These symptoms are consistent with gastritis or GERD. PLAN - Famotidine continue for 7 days outpatient Possible Asthma/Respiratory Issues Assessment: On lung examination, diffuse rhonchi were noted. Patient reports occasional wheezing and production of clear to hwathorne/black sputum. She has a history of using inhalers when ill but no formal diagnosis of asthma or COPD. Given her history of marijuana use, these symptoms could be related to smoking-induced bronchitis or undiagnosed asthma. PLAN: - Albuterol rescue inhaler - Outpatient spirometry/ PFTs - FU outpatient Mood disorder; MDD/Gen.Anx. PLAN - Sertraline - Gabapentin 100-300mg PRN Nightly for 7-10 days - FU outpatient Time spent discussing smoking cessation with patient: 3 to 10 minutes Status at Discharge Functional status at discharge: independent ambulation Overall status at discharge: patient is back to baseline Time Attestation Total time managing care of this patient today: 45 mintues. Discharge Coordination Time (in mins): 15 Specific discharge activities: 15 Quality: Safe Use of Opioids Does Pt have an Active Cancer Diagnosis on the Problem List?: No Quality: Stroke Does the patient have a stroke diagnosis?: No Physical Exam Exam: Exam: General: A&O x3, oriented to time place person and situation, comfortable, no pain Cardiac: S1, S2 auscultated with no S3/4, no MRG. Well perfused. Respiratory: Normal breath sounds auscultated throughout all lung zones, without wheezing, rales. Normal rate. GI/ : No abdominal pain on palpation, no masses or distentions. MSK: Normal ambulation without pain at bony prominences or musculature Neurological: Normal neurological examination on overview, without obvious CN II-XII abnormalities. Vital Signs: Vital Signs: Last Vital Signs Temp 96.8 F 02/22/25 07:47 Pulse 72 02/22/25 07:47 Resp 16 02/22/25 07:47 BP 118/67 02/22/25 07:47 Pulse Ox 98 02/22/25 07:47 O2 Del Method Room Air 02/22/25 07:47 O2 Flow Rate 1 02/18/25 12:19 BMI result Body Mass Index 31.0 DS: Data Data Completed and Pending Labs on day of discharge: Laboratory Results - last 24 hr 02/22/25 09:30 Sodium 140 Potassium 4.9 D Chloride 103 Carbon Dioxide 27 Anion Gap 15 BUN 6 L Creatinine 0.68 Estim Creat Clear Calc 117.7 Estimated GFR > 60 Random Glucose 98 Calcium 10.0 D Magnesium 1.9 Ferritin 439 H Total Bilirubin 0.9 AST 515 H ALT 489 H Alkaline Phosphatase 92 Total Protein 7.2 Albumin 4.8 Discharge Plan Discharge Anticipated Discharge Date/Time: 02/22/25 11:57 Patient Disposition: Home, Self-Care Discharge Diagnosis: Acute alcohol withdrawal Referrals: [facility] [Provider Group, Addiction Medicine] - 02/25/25 3:00 pm Referral Note: Please attend your appointment on 02/25 at 3pm. Physician,Unknown J [Primary Care Provider, Medical] - 1 Week Discharge Medications: New gabapentin 100 mg Capsule 100 mg PO BEDTIME PRN (Reason: Anxiety/Restlessness) 14 Days Qty: 30 0RF Rx Instructions: Take 1-3 tablets nightly as needed albuterol sulfate [Ventolin HFA] 90 mcg/actuation Hfa Aerosol Inhaler 1 puff inhalation RQ4H PRN (Reason: Wheezing) 30 Days Qty: 1 0RF naltrexone 50 mg Tablet 50 mg PO DAILY 30 Days Qty: 30 0RF famotidine 20 mg Tablet 40 mg PO 1XD 14 Days Qty: 28 0RF sertraline 25 mg Tablet 25 mg PO DAILY 30 Days Qty: 30 0RF mirtazapine 7.5 mg Tablet 7.5 mg PO BEDTIME 30 Days Qty: 30 0RF Discontinued naproxen sodium 500 mg Tablet, Er Multiphase 24 Hr 500 mg PO DAILY PRN (Reason: Migraine Headache) Discharge Orders: Discharge Order (Routine); Ordered 02/22/25 Ordered By: Felicia Patricia Diet: Advance to usual diet Activity on Discharge: As tolerated Stand Alone Forms: Patient Portal Discharge page Print Language: German Care Plan Goals: As above Health Concerns: As above Plan of Treatment: As above Assessment: Patient is hemodynamically stable, as completed withdrawal from ETOH. Ready for discharge home with outpatient supports
[2025-02-22 11:59] VITALS: BP 119/79; PULSE 99; RESP 16; TEMP 36; O2SAT 99
--- NOTE | 2025-02-22 12:12 | MHC.CM.PN ---
PT CLEARED TO DC HOME TODAY WITH A PLAN TO FOLLOW UP WITH THE [facility] PT WILL ARRANGE TRANSPORT
--- NOTE | 2025-02-22 13:27 | MHC.RECOVRN ---
T/W saw pt. in [facility] just prior to D/C to f/u and offer support. Pt anxious about D/C. T/W reviewed new meds prescribed for pt. including Naltrexone, Remeron and Zoloft and their purpose as well as instruction. T/W encouraged pt. to f/u at [facility] for ongoing treatment. Pt had friend with her waiting to transport. Pt. denied any further needs/concerns. T/W messaged covering requesting scripts for new meds started inpt. Report to Maura Yoon NP.
== END 2025-02-22 12:41 | disposition home or self-care (01) | DRG 280 ==
LOC: HO.ED 09:53 → HO.EDOVER 10:00 → HO.IMC 19:07 → HO.S3 02-19 19:48
PROVIDERS: Physician Assistant Medical; Admitting Provider Student in an Organized Health Care Education/Training Program; Emergency Provider Emergency Medicine Emergency Medical Services; Visit Provider Hospitalist
DX: K70.10 Alcoholic hepatitis without ascites (principal); K29.21 Alcoholic gastritis with bleeding; F10.239 Alcohol dependence with withdrawal, unspecified; F17.210 Nicotine dependence, cigarettes, uncomplicated; J45.20 Mild intermittent asthma, uncomplicated; Y90.8 Blood alcohol level of 240 mg/100 ml or more; Z71.6 Tobacco abuse counseling; Z20.822 Contact with and (suspected) exposure to COVID-19; Z79.899 Other long term (current) drug therapy
CPT/HCPCS: 36415; 74178; 80053; 80307; 81001; 81025; 82248; 82728; 83690; 83735; 84702; 85025; 86704; 86706; 86709; 86803; 87340; 87502; 87635; 93005; 99285; J1650; J2405; J2560; J2765; J3360; J7120; Q9967; S9485

== ENCOUNTER → 2025-02-18 06:01 | Outpatient (BNV) | payer OTHER, SELFPAY | PROVIDERS: Admitting Provider Student in an Organized Health Care Education/Training Program; Emergency Provider Emergency Medicine Emergency Medical Services; Visit Provider Internal Medicine Cardiovascular Disease | DX: R00.0 Tachycardia, unspecified (principal) | CPT/HCPCS: 93010 ==

== ENCOUNTER → 2025-02-18 07:22 | Outpatient (BNV) | payer OTHER, SELFPAY | PROVIDERS: Admitting Provider Student in an Organized Health Care Education/Training Program; Emergency Provider Emergency Medicine Emergency Medical Services; Visit Provider Radiology Body Imaging | DX: R16.0 Hepatomegaly, not elsewhere classified (principal) | CPT/HCPCS: 74178 ==

== ENCOUNTER → 2025-02-18 09:56 | Outpatient (BNV) | payer OTHER, SELFPAY | PROVIDERS: Admitting Provider Student in an Organized Health Care Education/Training Program; Emergency Provider Emergency Medicine Emergency Medical Services; Visit Provider Nurse Practitioner Psychiatric/Mental Health | DX: F10.939 Alcohol use, unspecified with withdrawal, unspecified (principal); F10.20 Alcohol dependence, uncomplicated | CPT/HCPCS: 99222; 99232 ==

== ENCOUNTER → 2025-02-18 09:56 | Outpatient (BNV) | payer OTHER, SELFPAY | PROVIDERS: Admitting Provider Student in an Organized Health Care Education/Training Program; Emergency Provider Emergency Medicine Emergency Medical Services; Visit Provider Student in an Organized Health Care Education/Training Program | DX: F10.939 Alcohol use, unspecified with withdrawal, unspecified (principal); B17.9 Acute viral hepatitis, unspecified | CPT/HCPCS: 99223; 99232; 99239 ==

== ENCOUNTER 2025-02-25 15:10 | Outpatient (AMB) | payer OTHER, SELFPAY ==
[2025-02-25 15:19] VITALS: BP 142/80; PULSE 108; O2SAT 96; BMI 30.8
--- NOTE | 2025-02-25 15:19 | A.OFFVIS_ITS ---
Vital Signs 02/25/25 15:19 Height 5 ft 1 in Weight 163 lb BMI 30.8 BP 142/80 H Pulse 108 H Pulse Oximetry (%) 96 Intake Visit Reasons: MAT Intake Allergies amoxicillin Allergy (Verified 02/25/25 15:20) Rash cefazolin Allergy (Verified 02/25/25 15:20) Rash Penicillins Allergy (Verified 02/25/25 15:20) Rash Medication List - Last Reconciled 02/26/25 by DAVID Tompkins albuterol sulfate 90 mcg/actuation (Ventolin HFA) 1 puff inhalation RQ4H PRN 30 days famotidine 40 mg (2 x 20 mg) PO 1XD 14 days folic acid 1 mg PO DAILY 30 days gabapentin 100 mg PO BEDTIME PRN 14 days mirtazapine 7.5 mg PO BEDTIME 30 days naltrexone 50 mg PO DAILY 30 days sertraline 25 mg PO DAILY 30 days thiamine mononitrate (vit B1) 100 mg PO DAILY HPI Comments Details: A 24-year-old female presents for MAT intake for AUD. Reports since inpatient admission on February 18 to [facility] for alcohol withdrawal she has not consume alcohol. Is currently taking naltrexone tablets 50 mg daily w ith positive effects. Denies opiate use, alcohol, and other substances does report intermittent use of cannabis. 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 Reports mild stress related to pending court case for OUI. Is follwowing up with mental health therapy sessions and attends AA meetings. Interested in a referral to a peer sustainability coach. [facility] Social History Household Members: None Housing: Apartment Do you presently have visiting nurse or other home services: No Comment: Refusing bed alarm Patient Tobacco Use Status: Current everyday Tobacco user Tobacco use type: Cigar Cigarettes Per Day: 10 e-Cigarette/Vaping Use: Never Used Second Hand Smoke Exposure: No Substance Use Type: Marijuana service: No Review of Systems Const All systems reviewed & are unremarkable except as noted in HPI and below Physical Exam Vital Signs: Last Vital Signs Pulse 108 H 02/25/25 15:19 BP 142/80 H 02/25/25 15:19 Pulse Ox 96 02/25/25 15:19 BMI result Body Mass Index 30.8 Const General: cooperative Psych Appearance: well kempt Mental Status: mental status grossly normal Speech and movement: Normal speech and movement present Affect: normal affect Attitude: cooperative Thought process: Normal thought process present Thought content: Normal thought content present Insight: Good insight present (Psych) Judgement: Good judgement present (Psych) Results AMB 14 Panel Urine Drug Screen Urine Marijuana (THC) Positive Last Edit by Chacorta Rutledge CMA on 15:41 Urine Cocaine Negative Last Edit by Chacorta Rutledge CMA on 02/25/25 15:41 Urine Morphine Negative Last Edit by Chacorta Rutledge CMA on 02/25/25 15:41 Urine Methamphetamine Negative Last Edit by Chacorta Rutledge CMA on 15:41 Urine Amphetamine Negative Last Edit by Chacorta Rutledge CMA on 02/25/25 15 :41 Urine Benzodiazepine Positive Last Edit by Chacorta Rutledge CMA on 02/25/25 15:41 Urine Barbiturates Positive Last Edit by Chacorta Rutledge CMA on 02/25/25 15:41 Urine Methadone Negative Last Edit by Chacorta Rutledge CMA on 02/25/25 15:4 1 Urine Buprenorphine Negative Last Edit by Chacorta Rutledge CMA on 02/25/25 15:41 Urine Tricyclic Antidepressant Negative Last Edit by Chacorta Rutledge CMA o n 02/25/25 15:41 Urine MDMA Negative Last Edit by Chacorta Rutledge CMA on 02/25/25 15:41 Urine Oxycodone Positive Last Edit by Chacorta Rutledge CMA on 02/25/25 15:4 1 Urine Phencyclidine Negative Last Edit by Chacorta Rutledge CMA on 02/25/25 15:41 Urine Propoxyphene Negative Last Edit by Chacorta Rutledge CMA on 02/25/25 15:41 Results Reviewed Results Reviewed: Laboratory Last Values POC Urine Buprenorphine Negative 02/25/25 15:25 POC Urine Morphine Negative 02/25/25 15:25 POC Urine Oxycodone Positive 02/25/25 15:25 POC Urine Methadone Negative 02/25/25 15:25 POC Urine Propoxyphene Negative 02/25/25 15:25 POC Urine Barbiturates Positive 02/25/25 15:25 POC U Tricyclic Antidpr Negative 02/25/25 15:25 POC Urine PCP Negative 02/25/25 15:25 POC Ur Amphetamines Negative 02/25/25 15:25 POC Ur Methamphetamine Negative 02/25/25 15:25 POC Urine MDMA Negative 02/25/25 15:25 POC Ur Benzodiazepine Positive 02/25/25 15:25 POC Urine Cocaine Negative 02/25/25 15:25 POC Ur Marijuana (THC) Positive 02/25/25 15:25 Assessment & Plan Assessment & Plan (1) Alcohol use disorder, severe, dependence: Code(s): F10.20 - Alcohol dependence, uncomplicated Category: Medical Plan The plan is to continue naltrexone daily, start folic acid 1 mg and thiamine 100 mg daily. A referral for a peer sustainability coach will be sent by buhr dresser. Follow up in 1 month or sooner if needed. Orders: Orders AMB 14 Panel Urine Drug Screen 02/25/25 Z51.81 - Encounter for therapeutic drug level monitoring Medications: New folic acid Take one tab daily 1 mg PO DAILY 30 tabs 4RF 30 days thiamine mononitrate (vit B1) Take one tablet daily 100 mg PO DAILY 30 tabs 4RF Patient Instructions: - Continue naltrexone as prescribed. - Start on folic acid 1 mg and thiamine 100 mg daily. - Continue with therapy sessions, AA meetings. - Call with questions, concerns, or to report side effects/new onset of symptoms to [facility]. - The patient verbalized understanding and agreed with plan of care. Coding Level of Care Code New Pt Level 3 (96618) Diagnoses Alcohol use disorder, severe, dependence F10.20 MAT Intake Nursing Intake Reason for visit: MAT Intake AUD Are you currently using?: No When was your last use?: 15 How much?: 1.75 L Vodka every 2-3 days What is your source of income?: employed What is your current relationship status?: single Date of last visit: 2018 Referral Source: Inpatient [facility] detox Substance Abuse History Substance Abuse History (includes route, frequency and quantity): Oxycodone product (prescribed inpatient ), Benzodiazepines (Prescribed inpatient), Alcohol (1.75 L every 2-3 days ), Marijuana (daily), Tobacco (socially) and Other (m ushrooms) Details: 1.75 L every 2-3 days Social History Domestic Violence concerns: yes Children: no Do you have a support system?: yes Current mode of transportation?: not currently Where are you currently residing?: [place] with Grandparents LMP: may 2024 Are you using contraception?: Yes IV Drug Use Have you ever shared needles?: No Have you ever belonged to a needle exchange program?: No Do you buy needles at a pharmacy?: No Have you ever overdosed?: No Have you ever been hospitalized for an overdose?: No Was Naloxone administered?: No Recovery History Have you had any periods of recovery?: No Have you ever had inpatient treatment for your substance abuse disorder?: Yes (Inpatient at [facility] for detox -02/22/25) Have you been in an inpatient detoxification program?: No Have you been in an inpatient Rehab/[facility] house?: No Have you been in an outpatient Methadone Maintenance program?: No Have you been in an AA/NA support program?: Yes (has been attending daily online meetings) Have you had a Recovery Support Family Physician?: No (requested- submitting application) Have you had Peer Support?: No Behavioral Health History Do you have a current provider? If so, who?: yes BH diagnosis: none History of other addictive behavior: no History of inpatient psychiatric hospitalization? If so, how many? Most Recent? Where?: no History of self harming thoughts?: No History of homicidal or suicidal intentions?: No Medical Conditions Endocarditis?: No Skin Infection: No Seizure related to withdrawal or overdose: No Head or brain injury: No Hepatitis A (if yes, have you been treated?): No Hepatitis B (if yes, have you been treated?): No Hepatitis C (if yes, have you been treated?): No HIV (if yes, have you been treated?): No TB (if yes, have you been treated?): No Other: No Do you have any chronic pain conditions?: Slipped discs in back-pain flares Legal History History of incarceration: No Currently on parole or probation: Yes Court mandated programs: Yes Pending court cases: Yes DCF involvement: No Details: OUI - Case will be closed in April 11
== END 2025-02-25 16:36 | disposition home or self-care (01) ==
LOC: HO.HCC 15:11
PROVIDERS: Visit Provider Clinical Nurse Specialist Psychiatric/Mental Health
DX: F10.20 Alcohol dependence, uncomplicated (principal)
CPT/HCPCS: 99203

== ENCOUNTER → 2025-02-25 15:10 | Outpatient (BNVA) | payer OTHER, SELFPAY | PROVIDERS: Visit Provider Clinical Nurse Specialist Psychiatric/Mental Health | DX: F10.20 Alcohol dependence, uncomplicated (principal); Z51.81 Encounter for therapeutic drug level monitoring | CPT/HCPCS: 80307; 99202 ==